=== PATIENT | female | born 1970 | race Caucasian/White ===

== ENCOUNTER 2020-07-22 08:45 | Day surgery (SDC) | payer BC ==
[~2020-07-22 08:45] MED LIST: Lactated Ringers 1,000 ML IV SCH; Lidocaine 1%/Sod Bicarbonate in NS 8.4% 1 ML Syringe IDERM PRN; Sodium Chloride 0.9% 10 ML Syringe FLUSH PRN
--- NOTE | 2020-07-22 09:17 | PCM.PREANE ---
Preanesthetic Assessment - Procedure Proposed Procedure: diagnostic egd sscreening colonoscopy - Anesthesia/Transfusion/Family Hx Anesthesia History: Prior Anesthesia Reaction Type of Anesthesia Reaction: Excessive Nausea/Vomiting Family History of Anesthesia Reaction: No - Review of Systems General: No Symptoms Pulmonary: No Symptoms Cardiovascular: No Symptoms Gastrointestinal: No Symptoms Neurological: No Symptoms Other: Reports: Thyroid Problems - Physical Assessment NPO Status Date: 07/22/20 NPO Status Time: 04:30 (prep) Vital Signs: 135/93 86 96% 16 97.1 Height: 5 ft 8 in Weight: 124.2 kg ASA Class: 3 Mental Status: Alert & Oriented x3 Airway Class: Mallampati = 1 Dentition: Reports: Normal Dentition Thyro-Mental Finger Breadths: 3 Mouth Opening Finger Breadths: 3 ROM/Head Extension: Full Lungs: Clear to Auscultation, Normal Respiratory Effort Cardiovascular: Regular Rate, Regular Rhythm - Allergies Allergies/Adverse Reactions: Allergies Allergy/AdvReac Type Severity Reaction Status Date / Time sulfamethoxazole Allergy Rash Verified 07/21/20 14:45 [From Bactrim] trimethoprim [From Bactrim] Allergy Rash Verified 07/21/20 14:45 - Blood Blood Available: No - Acknowledgements Anesthesia Type Planned: MAC Pt an Appropriate Candidate for the Planned Anesthesia: Yes Alternatives and Risks of Anesthesia Discussed w Pt/Guardian: Yes Pt/Guardian Understands and Agrees with Anesthesia Plan: Yes PreAnesthesia Questionnaire HEENT History: Reports: Impaired Vision Cardiovascular History: Reports: None Respiratory History: Reports: None Gastrointestinal History: Reports: GERD Genitourinary History: Reports: Urinary Incontinence 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 (See Below) Other OB/BYN History: dense breasts, menorrhagia, pelvic relaxation, vaginal discharge, BV, boil to vulva, x2, breast reduction Musculoskeletal History: Reports: None Neurological History: Reports: Other (See Below) Other Neuro History: hand tremor Psychiatric History: Reports: None Endocrine/Metabolic History: Reports: Hypothyroidism, Obesity/BMI 30+, Other (See Below) Other Endocrine/Metabolic History: thryroid nodule, thyromegaly Hematologic History: Reports: None Immunologic History: Reports: None Oncologic (Cancer) History: Reports: None Dermatologic History: Reports: Other (See Below) Other Dermatologic History: lichen sclerosis - Infectious Disease History Infectious Disease History: Reports: None - Past Surgical History Head Surgeries/Procedures: Reports: None HEENT Surgical History: Reports: Tonsillectomy Cardiovascular Surgical History: Reports: None Respiratory Surgical History: Reports: None GI Surgical History: Reports: Colonoscopy Female Surgical History: Reports: None Male Surgical History: Reports: None Endocrine Surgical History: Reports: None Neurological Surgical History: Reports: None Musculoskeletal Surgical History: Reports: None Oncologic Surgical History: Reports: None, Other (See Below) Dermatological Surgical History: Reports: None, Other (See Below) (breast reduction) - SUBSTANCE USE Tobacco Use Status *Q: Never Tobacco User Tobacco Use Within Last Twelve Months: No Second Hand Smoke Exposure: No Days Per Week of Alcohol Use: 1 Number of Drinks Per Day: 1 Total Drinks Per Week: 1 Recreational Drug Use History: No - HOME MEDS Home Medications: Home Meds Levothyroxine 112 mcg PO DAILY 07/21/20 [History] Lysine 100 mg PO DAILY 07/21/20 [History] Multivitamin [Daily David] 1 tab PO DAILY 07/21/20 [History] Triamcinolone Acetonide [Triamcinolone Acetonide 0.1% Crm] 1 dose TOP BID 07/21/20 [History] - CURRENT (IN HOUSE) MEDS Current Meds: Current Medications Lactated Ringer's (Ringers, Lactated) 1,000 mls @ 125 mls/hr IV ASDIRECTED KYRIE Stop: 07/22/20 23:00 Lidocaine/Sodium Bicarbonate (Buffered Lidocaine 1% In Ns 8.4%) 0.25 ml IDERM ONETIME PRN PRN Reason: Prior to IV Start Stop: 07/22/20 18:00 Sodium Chloride (Saline Flush) 10 ml FLUSH ASDIRECTED PRN PRN Reason: Keep Vein Open Stop: 07/22/20 18:00
[2020-07-22] MEDS ORDERED: Lidocaine 1% 4 ML ONE (09:29)
[2020-07-22] MEDS ORDERED: Propofol 200 MG/20 ML SDV ONE ×4 (09:29→10:42)
[2020-07-22] MEDS ORDERED: fentaNYL 100 MCG/2 ML SDV ONE (10:08)
--- NOTE | 2020-07-22 11:07 | PCM48HPAN ---
Post Anesthesia Note - EVALUATION WITHIN 48HRS OF ANESTHETIC Vital Signs in Normal Range: Yes Patient Participated in Evaluation: Yes Respiratory Function Stable: Yes Airway Patent: Yes Cardiovascular Function Stable: Yes Hydration Status Stable: Yes Pain Control Satisfactory: Yes Nausea and Vomiting Control Satisfactory: Yes Mental Status Recovered: Yes Vital Signs: Last Vital Signs Temp 36.3 C 07/22/20 09:00 Pulse 86 07/22/20 09:00 Resp 16 07/22/20 09:00 BP 135/93 H 07/22/20 09:00 Pulse Ox 96 07/22/20 09:00
--- NOTE | 2020-07-22 11:13 | PCM.PRNOTE ---
- Free Text/Narrative Note: Date: 07/22/2020 Procedure: diagnostic EGD, screening colonoscopy Indication: GERD, suspicion of hiatal hernia Endoscopist: Selvin Akers MD Findings: Fairly normal findings on upper endoscopy. Difficult colonoscopy due to patient habitus and redundancy. Cecum reached with colonoscope. No polyps. Diverticular disease. Detailed Report: The patient was taken to the endoscopy suite and placed in left lateral decubitus position. Time out was performed and monitored sedation initiated. A bite block was placed. The endoscope was inserted orally and advanced to the second portion of the duodenum with ease. The duodenal mucosa appeared normal. A biopsy with cold forceps was obtained. The stomach appeared normal. A sample of the gastric antral mucosa was obtained. On retroflexion within the stomach, no hiatal hernia was noted. The Z line appeared normal. A biopsy of distal esophageal mucosa was obtained. No other esophageal pathology was noted as the scope was withdrawn. Air was suctioned from the stomach prior to removal of the scope. Next colonoscopy was performed. Visual inspection of the anus revealed no abnormality. Digital rectal exam was unremarkable. The lubricated colonoscope was then inserted and advanced all the way to the cecum. The ileocecal valve and appendiceal orifice were visualized. The prep was fair. On slow withdrawal of the scope, mucosal surfaces were carefully inspected. No polyps were identified. Diverticular disease was noted in the sigmoid. On retroflexion within the rectum no abnormalities were noted. Air was suctioned prior to removal of the scope. The patient tolerated the procedure well.
== END 2020-07-22 11:50 | disposition home or self-care (01) ==
LOC: JD.SDS 08:45
PROVIDERS: ATTEND Surgery
DX: Z12.11 Encounter for screening for malignant neoplasm of colon (principal); K21.9 Gastro-esophageal reflux disease without esophagitis; Q43.8 Other specified congenital malformations of intestine; Z01.812 Encounter for preprocedural laboratory examination; Z20.828 Contact with and (suspected) exposure to other viral communicable diseases; E03.9 Hypothyroidism, unspecified; E66.01 Morbid (severe) obesity due to excess calories; Z88.8 Allergy status to other drugs, medicaments and biological substances; Z79.890 Hormone replacement therapy; Z79.899 Other long term (current) drug therapy; Z98.890 Other specified postprocedural states; Z68.41 Body mass index [BMI] 40.0-44.9, adult; Z88.2 Allergy status to sulfonamides
CPT/HCPCS: 43239; 45378; J2001; J2704; J3010; J7120; 00813